=== PATIENT | male | born 1935 | race Caucasian/White ===

== ENCOUNTER 2017-01-13 15:31 | Inpatient (IN) | payer OTHER ==
[~2017-01-13] VITALS: Ht 170.2 cm; Wt 67.7 kg
[2017-01-13 17:06] LABS: HEMATOCRIT 42.5 % (38.0-50.0); MCHC 34.1 G/DL (30.0-36.0); MCV 96.8 FL (86-99); PLATELET COUNT 214 K/uL (156-360); RBC DIS.WIDTH-CV 12.6 % (11.8-14.6); RBC DIS.WIDTH-SD 44.8 % (39-53); RED BLOOD COUNT 4.39 M/uL (4.00-5.50); WHITE BLOOD COUNT 11.8 K/uL (4.1-10.2)
[2017-01-13 17:22] LABS: CHLORIDE 111 mEq/L (99-109); POTASSIUM 4.1 mEq/L (3.7-5.4); SODIUM 141 mEq/L (136-147)
[2017-01-13 17:25] LABS: GLUCOSE 93 mg/dL (70-99)
[2017-01-13 17:26] LABS: ANION GAP 10 MEQ/L (2-14)
[2017-01-13 17:27] LABS: TOTAL BILIRUBIN 1.4 mg/dL (0.0-1.0)
[2017-01-13 17:28] LABS: ALKALINE PHOSPHATASE 78 IU/L (3-129); SERUM ETHYL ALCOHOL < 10 mg/dL
[2017-01-13 17:30] LABS: UREA NITROGEN (BUN) 26 mg/dL (9-23)
[2017-01-13 17:40] LABS: GFR ESTIMATE (CALCULATED) > 59 mL/min/
[2017-01-13 18:08] LABS: ADD MIUA? NO; BILIRUBIN NEGATIVE; BLOOD NEGATIVE; COLOR YELLOW ((YELLOW)); GLUCOSE (STRIP) NEGATIVE; KETONES 20; LEUKOCYTES NEGATIVE; NITRITE NEGATIVE; PROTEIN (STRIP) 30; SPECIFIC GRAVITY 1.017 (1.000-1.030); UROBILINOGEN 0.2 MG/DL (0.2-1.0)
[2017-01-13 18:31] LABS: AMPHETAMINE NEGATIVE (500 ng/mL); BARBITURATES NEGATIVE (200 ng/mL); BENZODIAZEPINES NEGATIVE (150 ng/mL); COCAINE NEGATIVE (150 ng/mL); INTERNAL CONTROLS VALID? YES; METHADONE NEGATIVE (200 ng/mL); METHAMPHETAMINE NEGATIVE (500 ng/mL); OPIATES (MORPHINE) NEGATIVE (100 ng/mL); OXYCODONE NEGATIVE (100 ng/mL); PHENCYCLIDINE NEGATIVE (25 ng/mL); PROPOXYPHENE NEGATIVE (300 ng/mL); THC CANNABINOIDS NEGATIVE (50 ng/mL); TRICYCLIC ANTIDEPRESSANTS NEGATIVE (300 ng/mL)
[2017-01-13] MEDS ORDERED: LANSOPRAZOLE30 MG PO (19:34)
[2017-01-13] MEDS ORDERED: PROPRANOLOL HCL60 MG PO (19:34)
[2017-01-13] MEDS ORDERED: IRON325 M1 PO (19:35)
[2017-01-13] MEDS ORDERED: VITAMIN B-12250 MCG PO (19:35)
[2017-01-13 20:40] VITALS: BP 131/65
[2017-01-13 20:51] VITALS: BP 131/65
[2017-01-14 04:42] VITALS: BP 136/71
[2017-01-14 07:36] VITALS: BP 126/60
[2017-01-14 14:59] VITALS: BP 108/59
[2017-01-15 07:53] VITALS: BP 106/54
== END 2017-01-15 11:51 | disposition home or self-care (01) | DRG 884 ==
LOC: EME 15:31 → EDOF 20:00 → 1WEST 20:00
PROVIDERS: Emergency Medicine
DX: F09 Unspecified mental disorder due to known physiological condition (principal); F02.81 Dementia in other diseases classified elsewhere, unspecified severity, with behavioral disturbance; G30.0 Alzheimer's disease with early onset; Z95.0 Presence of cardiac pacemaker
CPT/HCPCS: 70450; 80053; 81003; 82607; 84443; 85027; 97165 GO; 99281; 99285; G0480; J7030